=== PATIENT | female | born 1995 | race Caucasian/White ===

== ENCOUNTER → 2019-01-27 | Outpatient (CLI) | payer OTHER ==
[~2019-01-27] MED LIST: ACNE MEDICATION; BUP75 PO; ESTR-32 PO; FLUO40CA76 PO; LEV25 PO; LEVO50 PO; TRAZ-133 PO; [UNRECOGNIZED DRUG - CODE] MC; birth control pills
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
== END ==
LOC: CT 11:10
PROVIDERS: ATTEND Nurse Practitioner Family
DX: S09.93XA Unspecified injury of face, initial encounter (principal)
CPT/HCPCS: 70486